=== PATIENT | female | born 1955 | race Two or more races ===

== ENCOUNTER 2024-07-24 14:36 | Emergency (ER) | payer MEDICARE, MEDICAID, SELFPAY ==
[2024-07-24 15:20] VITALS: BP 120/81; PULSE 103; RESP 18; TEMP 36.8; O2SAT 95; BMI 36.3
--- NOTE | 2024-07-24 15:37 | XR_ITS ---
Examination: Cervical spine 3 views Technique: AP lateral coned AP odontoid cervical spine 3 views Exam date and time: July 2024 1553 hrs. Indications: Onset neck pain beginning 3 days ago. Findings: Adequate alignment cervical vertebral bodies No cervical fracture Advanced degenerative disc disease C5-C6, C6-C7 with some posterior osteophyte formation The odontoid is intact Impression: Advanced degenerative disc disease C5-C6, C6-C7
--- NOTE | 2024-07-24 15:38 | PD.EDRME ---
Rapid Medical Screening Exam RME Arrival date/time: 07/24/24 14:36 68-year-old female reports with complaints of neck pain that radiates to her head for 3 years Chief Complaint: Anxiety Time Seen by Provider: 07/24/24 15:28 Vital signs: Vital Signs Temperature 98.3 F 07/24/24 15:20 Pulse Rate 103 H 07/24/24 15:20 Respiratory Rate 18 07/24/24 15:20 Blood Pressure 120/81 07/24/24 15:20 Pulse Oximetry (%) 95 07/24/24 15:20 Oxygen Delivery Method Room Air 07/24/24 15:20
[2024-07-24] MEDS: IBUPROFEN TAB 400 MG TABLET PO (16:40)
--- NOTE | 2024-07-24 18:59 | EKG_ITS ---
[facility] Test Date: 2024-07-24 Pat Name: KRUNAL STARR Department: Room: - Gender: Female Hose Inspector: : [id number] Requested By: Boo Machado ([facility]) Order Number: [id number] Reading MD: Boo Machado ([facility]) Measurements Intervals [place] Rate: 87 P: -44 DE: 163 QRS: -19 QRSD: 89 T: 7 QT: 331 QTc: 399 Interpretive Statements SINUS RHYTHM No previous ECG available for comparison /store/S0/[id number].pdf
[2024-07-24 19:06] LABS: Basophils % (Auto) 0 % (0-2.5); Eosinophils % (Auto) 0 % (0-10); Hematocrit 45.5 % (36.0-46.0); Immature Granulocytes % (Auto) 0 % (0-0); Immature Granulocytes Auto 0.03 Thou/mm3 (0.00-0.00); Lymphocytes # (Auto) 3.1 Thou/mm3 (1.0-4.8); Lymphocytes % (Auto) 28 % (10-50); Mean Corpuscular HGB Conc 35.2 g/dl (31.0-37.0); Mean Corpuscular Hemoglobin 32.4 pg (25.0-35.0); Mean Corpuscular Volume 92 fL (80-100); Monocytes # (Auto) 0.6 Thou/mm3 (0.0-0.8); Monocytes % (Auto) 6 % (0-12); Neutrophils # (Auto) 7.2 Thou/mm3 (1.8-7.7); Neutrophils % (Auto) 65 % (37-80); Nucleated Red Blood Cell % 0 /100 WBC (0); Platelet Count 319 Thou/mm3 (140-440); RDW Standard Deviation 41.1 fL (36.4-46.3); Red Blood Count 4.94 Miln/mm3 (4.00-5.20)
--- NOTE | 2024-07-24 19:17 | EDNOTE_ITS ---
ED General RME/HPI General Chief complaint: Anxiety Stated complaint: ANXIETY Time Seen by Provider: 07/24/24 15:28 Arrival date/time: 07/24/24 14:36 Limitations: no limitations RME / HPI RME / HPI narrative: 07/24/24 14:36 68-year-old female reports with complaints of neck pain that radiates to her head for [address] RANKIN MAIN ED EVALUATION: 68 year old female with past medical history significant for Parkinson's disease presents to the Emergency Department accompanied by the daughter with multiple complaints of neck pain for 3 years; also per daughter they took the patient off her Parkinson's medication to see if that was the cause of her tachycardia without a plan and not her neck is now stiff. Daughter does not know which Parkinson's medications were removed. Patient has been generally weak, losing weight, and per daughter, they cannot take care of her. Related Data Home Medications ?Medication ?Instructions ?Recorded ?Confirmed fluoxetine 40 mg capsule 40 mg PO QDAY 08/07/18 hydroxyzine HCl 25 mg tablet 25 mg PO DAILY 08/07/18 levothyroxine 88 mcg capsule 88 mcg PO QDAY 08/07/18 lisinopril 10 1 tab PO DAILY 08/07/18 mg-hydrochlorothiazide 12.5 mg tablet oxybutynin chloride 5 mg 5 mg PO QDAY 08/07/18 tablet,extended release 24 hr Unobtainable 02/23/19 02/23/19 Allergies Allergy/AdvReac Type Severity Reaction Status Date / Time NKA Allergy Unknown Uncoded 07/24/24 14:45 Review of Systems Review of Systems Systems Reviewed: All systems reviewed, normal except as documented Narrative Review of Systems: GEN: No fever, no chills, + weight loss EYES: No discharge, no visual changes, no pain HEENT: No ear pain, no congestion, no sore throat PULM: No shortness of breath, no cough, no congestion CV: No chest pain, no dyspnea on exertion, no palpitations GI: No nausea, no vomiting, no diarrhea, no pain, no constipation : No frequency, no urgency and no dysuria MUSC/SKEL: + neck pain/ stiffness (see HPI), no back pain SKIN: No rash PSYCH: No hallucinations, no depression HEME/LYMPH: No easy bleeding or bruising tendencies NEURO: + generalized weakness, no headache Past Medical History Past Medical History NEUROLOGIC: Positive Parkinson's Disease Social History SMOKING STATUS: Never smoker SUBSTANCE USE: does not use ALCOHOL: Never ED Exam General Limitations: Present no limitations General appearance: Present alert, in no apparent distress and other (sitting in bed, under no acute distress but cannot move her head side to side) Head Head exam: Present atraumatic Eye Eye exam: Present normal appearance, PERRL and EOMI ENT ENT exam: Present normal exam, normal oropharynx and mucous membranes moist Neck Neck exam: Present trachea midline and other (limited ROM, cannot move her head side to side; neck is stiff) Chest Chest inspection: Present normal inspection and symmetric chest wall rise Respiratory Respiratory exam: Present normal lung sounds bilaterally Cardiovascular Cardiovascular exam: Present regular rate, normal rhythm and normal heart sounds Abdominal Exam Abdominal exam: Present soft and normal bowel sounds Extremities Exam Extremities exam: Present normal inspection and full ROM Back Exam Back exam: Present normal inspection and full ROM; Absent CVA tenderness (R) or CVA tenderness (L) Neurological Exam Neurological exam: Present alert, oriented X3, CN II-XII intact and other (no facial droop) Psychiatric Psychiatric exam: Present normal affect and normal mood Skin Skin exam: Present warm, dry, intact and normal color Course Course Course Narrative: OBSERVATION NOTE: The patient was placed in ED observation care at 07/24/24 at 2200 hours. The patient was placed in ED observation care because of pending SNF placement/social services specialist consultation. The patients past medical history, social history, and family history were reviewed. The plan of care will include serial examinations. 0600: Care signed out to Dr. Boyce (emergency physician). Past medical, surgical, social and family history reviewed. Vitals and home medications reviewed. Results and treatment plan discussed. They will assume the care of the patient at this time and will follow the patient, pending social services specialist consultation. At this time, observation has ended. Quality Measures none Orders Category Date Time Status EKG (ED ONLY) *Do not use* NOW Care 07/24/24 18:59 Completed IV [Insert IV] STAT Care 07/24/24 19:21 Active EKG (ED Only) Stat Exams 07/24/24 18:59 Draft XR cervical spine 2-3V Stat Exams 07/24/24 15:37 Completed BNP [B-Type Natriuretic Peptide] Stat Lab 07/24/24 18:48 Completed CBC Stat Lab 07/24/24 18:48 Completed CMP [Comprehensive Metabolic Panel] Stat Lab 07/24/24 18:48 Completed Free T4 (Free Thyroxine) Stat Lab 07/24/24 18:48 Completed Mag [Magnesium] Stat Lab 07/24/24 18:48 Completed PT [Prothrombin Time with INR] Stat Lab 07/24/24 18:48 Completed PTT [Partial Thromboplastin Time] Stat Lab 07/24/24 18:48 Completed TSH [Thyroid Stimulating Hormone] Stat Lab 07/24/24 18:48 Completed Troponin I Stat Lab 07/24/24 18:48 Completed Urinalysis, C/S if Indicated Stat Lab 07/24/24 19:12 Completed Diazepam [Valium] Med 07/24/24 19:20 Discontinued 2 mg PO X1 ONE HYDROcodone*/APAP 5/325 [[place] 5/325] Med 07/25/24 02:34 Discontinued 1 tab PO X1 ONE Ibuprofen Tab [Motrin Tab] Med 07/24/24 15:37 Discontinued 400 mg PO X1 ONE Levothyroxine Sodium [Synthroid] Med 07/25/24 05:18 Discontinued 88 mcg PO X1 ONE Lisinopril [Prinivil] Med 07/25/24 05:19 Discontinued 10 mg PO X1 ONE hydroCHLOROthiazide Med 07/25/24 05:19 Discontinued 12.5 mg PO X1 ONE Vital Signs Vital signs: Vital Signs Temperature 98.3 F 07/24/24 15:20 Pulse Rate 103 H 07/24/24 15:20 Respiratory Rate 18 07/24/24 15:20 Blood Pressure 120/81 07/24/24 15:20 Pulse Oximetry (%) 95 07/24/24 15:20 Oxygen Delivery Method Room Air 07/24/24 15:20 [facility] Patient data External records reviewed:: [facility] previous records (Reviewed physical therapy note for Low back pain, unspecified, dated 01/29/24.) Clinical information provided by:: patient and family Social determinants that could affect healthcare access:: none Patient has the following chronic illnesses:: Parkinson's disease How is presenting disease/condition affected by chronic disease/condition?: e xacerbated by Evaluation data The following diagnostics were reviewed and interpreted by me:: lab results, radiology exam(s) and EKG tracing(s) Lab and/or radiology exams considered but not ordered:: none Interpretation Summary: Procedure(s): XR cervical spine 2-3V Accession Number(s): [id number] cc: Saira Ocasio PA-C; Gregory Barnhart MD; Gerber Paniagua PA-C~ Examination: Cervical spine 3 views Technique: AP lateral coned AP odontoid cervical spine 3 views Exam date and time: July 2024 1553 hrs. Indications: Onset neck pain beginning 3 days ago. Findings: Adequate alignment cervical vertebral bodies No cervical fracture Advanced degenerative disc disease C5-C6, C6-C7 with some posterior osteophyte formation The odontoid is intact Impression: Advanced degenerative disc disease C5-C6, C6-C7 Dictated By: Gregory Barnhart MD Medications Medications considered but not ordered:: none Medication administrations:: Medication Administration History Discontinued Medications Hydrocodone Bitart/Acetaminophen (Hydrocodone/Apap 5/325 Tablet) 1 tab PO X1 ONE Stop: 07/25/24 02:35 Last Admin: 07/25/24 02:53 Dose: 1 tab Documented By: MARION Diazepam (Diazepam 5 Mg Tablet) 2 mg PO X1 ONE Stop: 07/24/24 19:21 Last Admin: 07/25/24 02:28 Dose: Not Given Documented By: DEYANIRA Non-Admin Reason: Patient Refused Hydrochlorothiazide (Hydrochlorothiazide 12.5 Mg Capsule) 12.5 mg PO X1 ONE Stop: 07/25/24 05:20 Ibuprofen (Ibuprofen Tab 400 Mg Tablet) 400 mg PO X1 ONE Stop: 07/24/24 15:38 Last Admin: 07/24/24 16:40 Dose: 400 mg Documented By: PRITI Levothyroxine Sodium (Levothyroxine Sodium 88 Mcg Tablet) 88 mcg PO X1 ONE Stop: 07/25/24 05:19 Lisinopril (Lisinopril 2.5 Mg Tablet) 10 mg PO X1 ONE Stop: 07/25/24 05:20 see above Consultations Consultation(s) initiated? (list below): No Diagnosis Differential Diagnosis ED Complaint MDM: Parkinson's dx, anxiety, side effect from stopping medication, abn lytes Most likely diagnosis given after review of the tests above:: see below Admission Indicated Admission indicated?: not indicated Explain why admission is indicated or not indicated:: Admission criteria not met. Admission Request Was there a request for admission?: No Disposition Plan Disposition Plan: other (specify) (Signed out to Dr. Boyce at 0600 pending social services specialist consultation for SNF placement.) Medical Decision Making MDM Narrative MDM Narrative: 68-year-old female with history of hypertension, Parkinson disease and thyroid disease who recently was removed from her Parkinson meds and medication for anxiety 48 hours ago because the provider at the clinic stated her labs were abnormal . Since stopping her medications the daughter reports that the patient's been slightly more stiff . The patient otherwise is home alone all day long and the family cannot take care of her at this point if she is stiff . While emergency department labs are drawn and there is no evidence of anemia, thrombocytopenia, or leukocytosis. Sodium is slightly low at 134 but otherwise magnesium and troponin, and BNP are normal. TSH is normal and do not feel the patient is in the thyroid exacerbation. Urinalysis is negative. Patient is treated with muscle relaxer and slightly improved. Will place consult for social work for placement. Differential Diagnosis Differential Diagnosis: Parkinson's dx, anxiety, side effect from stopping medication, abn lytes Lab Data 07/24/24 18:48 07/24/24 18:48 Labs: Lab Results 07/24/24 07/24/24 Range/Units 18:48 19:12 WBC 11.0 (3.6-11.0) Thou/mm3 RBC 4.94 (4.00-5.20) Miln/mm3 Hgb 16.0 (12.0-16.0) g/dL Hct 45.5 (36.0-46.0) % MCV 92 (80-100) fL MCH 32.4 (25.0-35.0) pg MCHC 35.2 (31.0-37.0) g/dl RDW Std Deviation 41.1 (36.4-46.3) fL Plt Count 319 (140-440) Thou/mm3 Neut % (Auto) 65 (37-80) % Lymph % (Auto) 28 (10-50) % Braxton % (Auto) 6 (0-12) % Eos % (Auto) 0 (0-10) % Baso % (Auto) 0 (0-2.5) % Neut # (Auto) 7.2 (1.8-7.7) Thou/mm3 Lymph # (Auto) 3.1 (1.0-4.8) Thou/mm3 Braxton # (Auto) 0.6 (0.0-0.8) Thou/mm3 Eos # (Auto) 0.0 (0.0-0.5) Thou/mm3 Baso # (Auto) 0.0 (0.0-0.2) Thou/mm3 Immature Gran # (Auto) 0.03 H (0.00-0.00) Thou/mm3 Absolute Nucleated RBC 0.00 (0.00-0.00) Thou/mm3 Immature Gran % 0 (0-0) % Nucleated RBC % 0 (0) /100 WBC PT 10.9 (9.0-12.2) Seconds INR 1.0 (0.9-1.3) APTT 28.5 (22.0-36.0) Seconds Sodium 134 L (136-145) mMol/L Potassium 3.9 (3.4-5.1) mMol/L Chloride 101 (98-107) mMol/L Carbon Dioxide 26.6 (20.0-31.0) mMol/L Anion Gap 6 L (7-16) BUN 9 (9-23) mg/dL Creatinine 0.6 (0.6-1.3) mg/dL Estim Creat Clear Calc 84.1 (>60) mL/min eGFR > 60 (60 - ) See Note BUN/Creatinine Ratio 15 (12-20) Ratio Glucose 112 H (74-106) mg/dL Calculated Osmolality 267 L (275-295) Calcium 9.8 (8.3-10.6) mg/dL Corrected Calcium 9.8 (8.5-10.1) mg/dL Magnesium 2.3 (1.6-2.6) mg/dL Total Bilirubin 0.5 (0.3-1.2) mg/dL AST 30 (0-34) U/L ALT 31 (10-49) U/L Alkaline Phosphatase 98 (46-116) U/L Troponin I < 0.002 (0.0-0.045) ng/mL B-Natriuretic Peptide < 20 (0-100) pg/mL Total Protein 7.4 (5.7-8.2) gm/dL Albumin 4.8 (3.4-4.8) gm/dL Globulin 2.6 (2.3-3.5) gm/dL Albumin/Globulin Ratio 1.8 (1.2-2.2) TSH 3.01 (0.55-4.78) uIU/mL Free T4 1.64 (0.89-1.76) ng/dL Ur Collection Type Clean Catch Urine Color Lt-Yellow (Lt Yel-Yel) Urine Clarity Clear (Clear/Hazy) Urine pH 8.0 H (5.0-7.0) Ur Specific [place] 1.017 (1.001-1.035) Urine Protein Negative (Neg - Trace) Urine Glucose (UA) Negative (Negative) Urine Ketones Trace (Negative) Urine Blood Negative (Negative) Urine Nitrite Negative (Negative) Urine Bilirubin Negative (Negative) Urine Urobilinogen (Auto) Negative (0.0-1.0) mg/dL Ur Leukocyte Esterase Negative (Negative) Urine RBC 0 (0-3) /hpf Urine WBC 0 (0-5) /hpf Ur Squamous Epith Cells < 1 (0-5) /hpf Urine Bacteria Rare (None) Ur Culture Indicated? Not Indicated Discharge Plan Plan Disposition Comment: Sighned out to Dr. Boyce 0600 Patient condition on transfer: Stable Prescriptions/Referrals Prescriptions/Med Rec: No Action Unobtainable fluoxetine 40 mg capsule 40 mg PO QDAY levothyroxine 88 mcg capsule 88 mcg PO QDAY oxybutynin chloride 5 mg tablet extended release 24 hr 5 mg PO QDAY hydroxyzine HCl 25 mg tablet 25 mg PO DAILY lisinopril-hydrochlorothiazide 10-12.5 mg tablet 1 tab PO DAILY Referrals: Saira Ocasio PA-C [Primary Care Provider] - In 1 week Problem List Clinical Impression: Parkinson's disease, Anxiety Patient/Caregiver Discharge Instructions Print Language: Telugu
[2024-07-24 19:27] LABS: B-Type Natriuretic Peptide < 20 pg/mL (0-100)
[2024-07-24 19:32] LABS: Collection Type, Urine Clean Catch; RBC,Urine 0 /hpf (0-3); WBC,Urine 0 /hpf (0-5)
[2024-07-24 19:32] LABS: Alanine Aminotransferase 31 U/L (10-49); Albumin, Serum 4.8 gm/dL (3.4-4.8); Albumin/Globulin Ratio 1.8 (1.2-2.2); Alkaline Phosphatase 98 U/L (46-116); Anion Gap 6 (7-16); Aspartate Amino Transferase 30 U/L (0-34); BUN/Creatinine Ratio 15 Ratio (12-20); Bilirubin,Total 0.5 mg/dL (0.3-1.2); Blood Urea Nitrogen 9 mg/dL (9-23); Calcium 9.8 mg/dL (8.3-10.6); Calcium (Corrected) 9.8 mg/dL (8.5-10.1); Carbon Dioxide 26.6 mMol/L (20.0-31.0); Chloride 101 mMol/L (98-107); Creatinine (Component) 0.6 mg/dL (0.6-1.3); Estimated Creatinine Clearance 84.1 mL/min (>60); Free T4 (Free Thyroxine) 1.64 ng/dL (0.89-1.76); Globulin 2.6 gm/dL (2.3-3.5); Glucose 112 mg/dL (74-106); Magnesium 2.3 mg/dL (1.6-2.6); Osmolality,Calculated 267 (275-295); Potassium 3.9 mMol/L (3.4-5.1); Sodium 134 mMol/L (136-145); Thyroid Stimulating Hormone 3.01 uIU/mL (0.55-4.78); Total Protein 7.4 gm/dL (5.7-8.2); Troponin I < 0.002 ng/mL (0.0-0.045); eGFR > 60 See Note
[2024-07-24 19:38] LABS: Partial Thromboplastin Time 28.5 Seconds (22.0-36.0); Prothrombin Time 10.9 Seconds (9.0-12.2)
[2024-07-24 20:10] LABS: Bacteria,Urine Rare; Bilirubin,Urine Negative (Negative); Blood,Urine Negative (Negative); Clarity,Urine Clear (Clear/Hazy); Color,Urine Lt-Yellow (Lt Yel-Yel); Culture Indicated,Urine Not Indicated; Glucose, Urine Negative (Negative); Ketones,Urine Trace (Negative); Leukocyte Esterase,Urine Negative (Negative); Nitrite,Urine Negative (Negative); Protein,Urine Negative (Neg - Trace); Specific Gravity,Urine 1.017 (1.001-1.035); Squamous Epithelial Cell,Urine < 1 /hpf (0-5); Urobilinogen,Urine Negative mg/dL (0.0-1.0)
[2024-07-24 23:40] VITALS: BP 133/88; PULSE 92; RESP 17; TEMP 36.7; O2SAT 96
[2024-07-25] VITALS (7 sets, daily range): BP systolic 118–131; BP diastolic 82–94; PULSE 87–120; RESP 18–20; TEMP 36.8–36.9; O2SAT 93–95; BMI 13.0
[2024-07-25] MEDS: HYDROcodone/APAP 5/325 TABLET 1 TAB PO (02:53)
--- NOTE | 2024-07-25 05:39 | PC.NURSE ---
Home meds ordsered. Pt doesnt take meds until after breakfast.
--- NOTE | 2024-07-25 06:19 | PD.EDADDENDU ---
Emergency Room Addendum Addendum Narrative: 0600: Care assumed from Dr. Robin, the previous shift emergency physician. Past medical, surgical, social and family history reviewed. Vitals and home medications reviewed. I will assume the care of the patient at this time, pending aids social worker consultation for SNF placement. Please refer to the emergency department record for history and examination from initial visit.? Nursing notes reviewed by me. Vital signs reviewed by me. [facility] medical records reviewed by me. 0740: Made aware by GRAIN OILSEED OR PASTURE FARM WORKER the patient is unable to be placed into a SNF from the ED. States he spoke with daughter and patient his history of Parkinsons and was recently stopped. Stated since stopping the medication she is unable to care for her at home. 0820: I had a long discussion with patients daughter. States she stopped the Parkinson's medication Thursday and contacted PCP who advised they would reassess patient on Thursday07/29/2024. Reports at home patient is having difficulty with swallowing and has chocked before. Also stated patient remains laying in bed majority of the pain due to difficulty walking. 0845: I spoke again with GRAIN OILSEED OR PASTURE FARM WORKER and will speak again with the patients daughter. 1100: GRAIN OILSEED OR PASTURE FARM WORKER reports the patient has been accepted for long-term care at [facility]. 1505: EMS here to transfer patient. Patient was discharged in stable condition.
--- NOTE | 2024-07-25 08:27 | PC.NURSE ---
Dr. Boyce talking with pt. and pt.'s daughter, pt.'s daughter is crying stating she is overwhelmed and wants to know if pt. is going home.
--- NOTE | 2024-07-25 09:05 | PC.NURSE ---
Al SS worker bedside talking with pt. and pt,'s daughter, breakfast tray given.
[2024-07-25] MEDS: hydroCHLOROthiazide 12.5 MG CAPSULE PO (10:09)
[2024-07-25] MEDS: ACETAMINOPHEN 500 MG TABLET 1000 MG PO (10:10)
[2024-07-25] MEDS: Lisinopril 2.5 MG TABLET 10 MG PO (10:10)
--- NOTE | 2024-07-25 10:41 | PC.PT ---
PT eval completed.
--- NOTE | 2024-07-25 14:10 | PC.NURSE ---
Report given to Viola at [facility]
--- NOTE | 2024-07-25 17:13 | PC.CC ---
Pt Angeles Gaspar is a 68 yr old female to ED for anxiety and advancing Parkinson's. Pt kept in ED overnight as daughter is reporting being unable to care for pt in the home. Daughter requesting detention placement. Upon review of pts chart, pt health coverage would require 3 night inpatient admission for rehab and short term SNF placement. Pt has secondary of [facility] for possible termite control service representative placement, if bed is available. Plan is for ENGINE LATHE TENDER CC to speak with pt and family to provide options and possible outcomes. ENGINE LATHE TENDER CC spoke with ED attending and presented possible barriers, and plan if pt is does not meet criteria. ED attending is in agreement for ENGINE LATHE TENDER CC to meet with family and pt at this time. ENGINE LATHE TENDER CC met with pt and her daughter Angeles Grider [phone] at bedside. ENGINE LATHE TENDER CC introduced self and role in pt care. Pt is noted to be Urdu speaking only and her daughter was in agreement to translate. ENGINE LATHE TENDER CC explained that barrier with pts primary health coverage. ENGINE LATHE TENDER CC explained that pt does not meet criteria for admission as required by Medicare guidelines for placement. ENGINE LATHE TENDER CC informed pts daughter that case can be presented as a termite control service representative request, with no guarantee pt will be successfully placed due to bed type availability. Pts daughter expressed understanding. ENGINE LATHE TENDER CC provided information and possible services pt would be able to utilize in the event that termite control service representative care bed is not available. ENGINE LATHE TENDER CC provided information about home health for PT/OT. Per pts daughter, pt is already receiving PT in the home. ENGINE LATHE TENDER CC provided further resources for IHSS, per pts daughter her sister is already pts IHSS care provider. ENGINE LATHE TENDER CC explained that inquiry will be sent with outcome being presented to pt and family. PASRR completed. PT eval pending. ENGINE LATHE TENDER CC spoke with inpatient PT Lucy, who states she will come to ED shortly. Inquiry uploaded to [facility], with note that request is for halfway placement with no plan for admission to acute care setting. [facility] accepted pt for termite control service representative care. [facility]winder Duval declined stating pt did not meet criteria for placement. Accepting facilities presented to pt and to her daughter. Pts daughter inquired, if decision has to be made today. ENGINE LATHE TENDER CC explained that decision has to be made FAREED as bed may be given to another individual. ENGINE LATHE TENDER CC inquired with pt if she is disposed to D/c to skilled setting. Pt stated that she is not ready to make decision. ENGINE LATHE TENDER CC inquired if pts family has spoken to pt about placement. Per pts daughter family would like to speak with her about decision. At this time PT is at bedside. ENGINE LATHE TENDER CC informed pts daughter that pt will complete PT eval and family will need to discuss options and plan of care. PT eval completed. ENGINE LATHE TENDER CC followed up with pt and her daughter. At this time pt is in agreement to D/c to SNF. Daughter inquired about visitation and policies on checking pt out for family visits. ENGINE LATHE TENDER CC informed pts daughter that, ENGINE LATHE TENDER CC is unable to provide that information, which can be provided by admissions team. At this time pt and family in agreement to placement at [facility]. ENGINE LATHE TENDER CC communicated with Kathy with [facility]. [facility] is able to accept pt at anytime. Kathy requesting transport ETA once trip is scheduled. Placement booked in [facility]. 0941-ENGINE LATHE TENDER CC made contact with [facility], reference #[id number]. Request for BLS, as pt is high fall risk due to advancing Parkinson's. PCS and face sheet uploaded to [facility]. Pending transport ETA. 1344-Call from [facility], transport ETA set for 1500. ENGINE LATHE TENDER CC communicated with Kathy from [facility] with ETA. Pt clinical packet completed. ENGINE LATHE TENDER CC will remain available as needed for pt care and staff support.
== END 2024-07-25 15:12 | disposition home or self-care (01) ==
PROVIDERS: Emergency Provider Emergency Medicine; PCP Physician Assistant
DX: F41.9 Anxiety disorder, unspecified (principal); G20.A1 Parkinson's disease without dyskinesia, without mention of fluctuations; M50.322 Other cervical disc degeneration at C5-C6 level
CPT/HCPCS: 36415; 72040; 80053; 81001; 83735; 83880; 84439; 84443; 84484; 85025; 85610; 85730; 93005; 99284; A9270